=== PATIENT | female | born 1985 | race Caucasian/White ===

== ENCOUNTER 2023-12-31 14:22 | Outpatient (REF) | payer OTHER, SELFPAY ==
[2023-12-31 14:50] LABS: MANUAL DIFF FLAG NO
[2023-12-31 15:48] LABS: Basophils Absolute Auto 0.1 X10*3/uL (0.0-0.2); Eosinophils Absolute Auto 0.1 X10*3/uL (0.0-0.4); Hematocrit 41.8 % (37.0-47.0); Hemoglobin 14.7 g/dl (12.0-16.0); Imm Gran Abs Auto 0.03 X10*3/uL (0.00-0.03); Imm Gran Pct Auto 0.4 % (0.0-0.4); Lymphocytes Absolute Auto 1.5 X10*3/uL (1.2-4.9); Lymphocytes Percent Auto 21.8 % (20-40); Mean Corpuscular HGB Conc 35.2 g/dl (31.0-35.0); Mean Corpuscular Hemoglobin 32.6 pg (27.0-33.0); Mean Corpuscular Volume 92.7 fL (80.0-98.0); Mean Platelet Volume 12.1 fL (9.4-12.3); Monocytes Absolute Auto 0.6 X10*3/uL (0.1-1.2); Monocytes Percent Auto 8.1 % (2-11); Neutrophils Absolute Auto 4.7 x10*3/uL (2.0-8.3); Neutrophils Percent Auto 67.7 % (45-73); Platelet Count 235 X10*3/uL (160-400); Red Blood Count 4.51 X10*6/uL (4.20-5.50); Red Cell Distribution Width 12.4 % (11.0-16.0); White Blood Count 6.9 X10*3/uL (4.8-10.8)
[2023-12-31 16:17] LABS: Alanine Aminotransferase 47 U/L (0-31); Albumin Level 4.5 g/dL (3.5-5.0); Alkaline Phosphatase 46 U/L (39-117); Anion Gap 13 (12-20); Aspartate Amino Transferase 31 U/L (5-31); Bilirubin Total 0.8 mg/dL (0.0-1.0); Blood Urea Nitrogen 9 mg/dL (9-16); Calcium 10.1 mg/dL (8.4-10.2); Carbon Dioxide 23 mmol/L (22-29); Chloride 108 mmol/L (96-108); Estimated Glomerular Filt Rate > 60; Glucose Random 73 mg/dL (60-115); Potassium 3.9 mmol/L (3.3-5.1); Sodium 140 mmol/L (135-145); Total Protein 7.6 g/dL (6.5-8.0)
[2023-12-31 16:31] LABS: TSH reflex Free T4 2.68 uIU/mL (0.32-4.0)
== END 2023-12-31 14:23 | disposition home or self-care (01) ==
LOC: HO.LAB 14:22
PROVIDERS: PCP Nurse Practitioner Family; Visit Provider Nurse Practitioner Family
DX: R53.81 Other malaise (principal); R53.83 Other fatigue
CPT/HCPCS: 36415; 80053; 84443; 85025

== ENCOUNTER 2024-01-11 12:26 | Outpatient (REF) | payer OTHER, SELFPAY ==
--- NOTE | ~2024-01-11 | MM_ITS ---
EXAMINATION: MM SCREENING DIGITAL BREAST TOMOSYNTHESIS, BILATERAL CLINICAL INFORMATION: Screening. Asymptomatic. The patient is status post bilateral breast reduction approximately 8 years prior to this examination. COMPARISON: Mammography: This study is compared with the most recent previous mammogram from 2017. This was a prereduction mammogram. TECHNIQUE: Digital breast tomosynthesis is performed in both the craniocaudal and mediolateral oblique views along with computer-aided detection (CAD). Synthesized 2D images are generated from the tomosynthesis. FINDINGS: There are scattered areas of fibroglandular density (ACR BI-RADS breast composition Category b). There is a focal asymmetry in the upper-outer quadrant of the deep third of the right breast. This may be related to prior breast reduction however, this setting no interval mammograms since the breast reduction after November 2016, targeted diagnostic mammographic and targeted sonographic imaging of this finding is advised to ensure that it does not represent a clinically significant entity. In the left breast, there are no significant masses, abnormal calcifications, or other abnormalities. Postreduction changes are present in both breasts.. MM/MM tomosynthesis screening BI IMPRESSION: Bilateral post reduction changes. Focal asymmetry of the right breast warrants additional mammographic and targeted sonographic imaging. No mammographic signs of malignancy left breast. ASSESSMENT: BI-RADS BI-RADS 0 - Incomplete: Needs additional Imaging. RECOMMENDATION: 1. Additional views of the right breast. 2. Targeted ultrasound if warranted after review of the additional views. 3. Radiology department staff will contact the patient for additional imaging. Additional Imaging required This examination should not preclude the clinical evaluation of a suspicious palpable abnormality. This patient's information was entered into a reminder system with a target due date for their next mammogram. Electronically signed by: Inez Sadler MD 02/07/2024 03:32 PM EDT
== END 2024-01-11 12:27 | disposition home or self-care (01) ==
LOC: HO.MAMMO 12:26
PROVIDERS: PCP Nurse Practitioner Family; Visit Provider Nurse Practitioner Family
DX: Z12.31 Encounter for screening mammogram for malignant neoplasm of breast (principal)
CPT/HCPCS: 77063; 77067

== ENCOUNTER → 2024-01-11 12:45 | Outpatient (BNV) | payer OTHER, SELFPAY | PROVIDERS: PCP Nurse Practitioner Family; Visit Provider Radiology Diagnostic Radiology | DX: Z12.31 Encounter for screening mammogram for malignant neoplasm of breast (principal) | CPT/HCPCS: 77063; 77067 ==

== ENCOUNTER 2024-03-18 13:44 | Outpatient (REF) | payer OTHER, SELFPAY ==
--- NOTE | ~2024-03-18 | US_ITS ---
EXAMINATION: US DIAGNOSTIC ULTRASOUND BREAST, RIGHT CLINICAL INFORMATION: Evaluate focal asymmetry 11:00 axis posterior one third right breast seen on screening examination. In the interim between 01/11/2024, and 12/14/2016, patient has undergone breast reduction surgery. The architecture of the breasts has changed significantly. History of biopsied fibroadenoma 6:00 right breast, removed during surgery. COMPARISON: No prior ultrasound available. Mammography 01/11/2024 ([facility]) Mammography 12/14/2016, 11/30/2016 ([facility]). TECHNIQUE: Ultrasound of the breast is performed with real-time dao scale imaging and color Doppler. Attention was given to the 10:00 to the 2:00 axis to include the area of mammographic concern. FINDINGS: Within the liver o'clock axis right breast, 8 cm from the nipple, correlating with the mammographic focal asymmetry, is a mixed hypoechoic and hyperechoic slightly lobular mass measuring an estimated 4.0 x 1.9 x 3.7 cm. There is an adjacent small 7 mm cyst slightly laterally. This has an overall appearance highly suggestive of a region of fat necrosis/scarring from surgery, or possibly a superiorly displaced island of extremely dense breast tissue. Regardless, the presence of internal fat echogenicity as well as density seen on mammography confirms benign nature. No suspicious masses or abnormal shadowing identified. There is architectural distortion from prior breast reduction. US/US breast RT limited mamm only IMPRESSION: -No findings suspicious for malignancy right breast. -Probable region of scarring or fat necrosis in the 11:00 posterior right breast as described above. Presence of internal fat confirms benignity. No further follow-up required. Recommend the patient resume routine annual screening mammography. ASSESSMENT: BI-RADS 2: Benign RECOMMENDATION: Routine annual mammography screening. This patient's information was entered into a reminder system with a target due date for their next mammogram. Electronically signed by: Hemant Pantoja MD 03/18/2024 02:37 PM EDT
== END 2024-03-18 13:45 | disposition home or self-care (01) ==
LOC: HO.MAMMO 13:44
PROVIDERS: PCP Nurse Practitioner Family; Visit Provider Nurse Practitioner Family
DX: R92.8 Other abnormal and inconclusive findings on diagnostic imaging of breast (principal)
CPT/HCPCS: 76642

== ENCOUNTER → 2024-03-18 14:30 | Outpatient (BNV) | payer OTHER, SELFPAY | PROVIDERS: PCP Nurse Practitioner Family; Visit Provider Radiology Diagnostic Radiology | DX: N64.1 Fat necrosis of breast (principal); N63.11 Unspecified lump in the right breast, upper outer quadrant | CPT/HCPCS: 76642 ==

== ENCOUNTER 2024-03-28 16:06 | Outpatient (REF) | payer OTHER, SELFPAY ==
[2024-03-28 17:00] LABS: Alanine Aminotransferase 37 U/L (0-31); Albumin Level 4.3 g/dL (3.5-5.0); Alkaline Phosphatase 41 U/L (39-117); Aspartate Amino Transferase 28 U/L (5-31); Bilirubin Direct 0.1 mg/dL (0.0-0.5); Bilirubin Total 0.4 mg/dL (0.0-1.0); Total Protein 7.3 g/dL (6.5-8.0)
[2024-03-28 17:18] LABS: Thyroid Stimulating Hormone 3.28 uIU/mL (0.32-4.0)
== END 2024-03-28 16:07 | disposition home or self-care (01) ==
LOC: HO.LAB 16:06
PROVIDERS: PCP Nurse Practitioner Family; Visit Provider Nurse Practitioner Family
DX: R79.89 Other specified abnormal findings of blood chemistry (principal); E03.9 Hypothyroidism, unspecified
CPT/HCPCS: 36415; 80076; 84443

== ENCOUNTER 2024-10-14 08:22 | Outpatient (REF) | payer OTHER, SELFPAY ==
[2024-10-14 09:45] LABS: Alanine Aminotransferase 46 U/L (0-31); Anion Gap 12 (12-20); Aspartate Amino Transferase 40 U/L (5-31); Bilirubin Total 0.5 mg/dL (0.0-1.0); Blood Urea Nitrogen 10 mg/dL (9-16); Carbon Dioxide 23 mmol/L (22-29); Chloride 107 mmol/L (96-108); Estimated Glomerular Filt Rate > 60; Glucose Random 93 mg/dL (60-115); Potassium 3.9 mmol/L (3.3-5.1); Sodium 138 mmol/L (135-145); Total Protein 6.6 g/dL (6.5-8.0)
[2024-10-14 10:23] LABS: TSH reflex Free T4 4.63 uIU/mL (0.32-4.0)
[2024-10-14 12:54] LABS: Alkaline Phosphatase 42 U/L (39-117)
[2024-10-14 13:09] LABS: Free T4 (Free Thyroxine) 0.81 ng/dL (0.71-1.85)
== END 2024-10-14 08:23 | disposition home or self-care (01) ==
LOC: HO.LAB 08:22
PROVIDERS: PCP Nurse Practitioner Family; Visit Provider Nurse Practitioner Family
DX: Z00.00 Encounter for general adult medical examination without abnormal findings (principal); E03.9 Hypothyroidism, unspecified
CPT/HCPCS: 36415; 80053; 84439; 84443

== ENCOUNTER 2024-10-19 13:37 | Emergency (ER) | payer OTHER, SELFPAY ==
--- NOTE | 2024-10-19 13:42 | ED.GENADULT ---
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 States the tubing ripped during patient transport. Complains of nausea and slight lightheadedness but denies vomiting. Denies chest pain, shortness of breath, palpitations, dizziness. Did not flush eyes immediately after incident. MD complaint: fentanyl exposure Onset (ago): minute(s) Location: eyes Related Data Allergies Allergy/AdvReac Type Severity Reaction Status Date / Time opioids AdvReac Drowsy Uncoded 10/19/24 13:56 Review of Systems Review of Systems: As per HPI Yes all other systems are reviewed and are negative Constitutional: Constitutional: Reports as per HPI PMFSH Social History Social History Smoked in Last 30 Days: No Use of substances other than those prescribed or required for medical reasons: No Advance Directives: No Advance Directives Information Provided: Yes Do you have a plan to hurt others: No Plan Patient : No Physical Exam ED Vital Signs: Vital Signs - 24 hr 10/19/24 13:51 10/19/24 16:11 Temperature 97.9 F 96.9 F Pulse Rate 78 78 Respiratory Rate 18 20 Blood Pressure 140/84 H 152/98 H Pulse Oximetry 97 100 Oxygen Delivery Method Room Air Room Air BMI result Body Mass Index 35.0 Vital signs have been reviewed and appear to be correct. Blood pressure normal. Heart rate normal. Respiratory rate normal. Temperature normal. Oxygen saturation normal. Const General: cooperative, healthy appearing and no acute distress Orientation/consciousness: oriented to person, oriented to place, oriented to time and patient oriented x3 Limitations: no limitations HENMT Head: Yes normocephalic and Yes atraumatic Ears: external ears normal General nose exam: Normal external nose present Face and sinus: Yes face symmetric Mouth: oropharynx normal and moist mucous membranes Throat: Yes uvula midline Eyes General: appearance normal, both eyes and all related structures Visual Kothari: normal visual kothari by confrontation Eyelids: Yes eyelids normal Conjunctivae: conjunctivae normal Sclerae: sclerae normal Corneas: corneas normal Pupils: Equal, round and reactive pupils present (4mm bilat) EOM: EOMs intact bilaterally Direct Ophthalmoscopy: normal light reflex and no photophobia Neck Neck: Yes normal visual inspection and Yes supple Resp Effort & Inspection: normal respiratory effort and able to speak in complete sentences Auscultation: clear to auscultation bilaterally Cardio Rate: regular rate Rhythm: regular rhythm Heart sounds: S1 normal heart sound present and S2 normal heart sound present GI Palpation (GI): Soft to palpation and nontender Auscultation: normoactive bowel sounds General: Yes no CVA tenderness Back/Spine/Pelvis Back: no CVA tenderness Skin General skin exam: elasticity normal and turgor normal Neuro General: oriented to person, oriented to place, oriented to time, patient oriented x3, moves all extremities, no focal motor deficits and CN's II-XI intact bilaterally Cranial nerves: Yes Equal, round and reactive pupils present (4mm bilat) Cognition (Neuro): normal cognition Extrem General: Yes full ROM, Yes no pedal edema and Yes no calf tenderness Psych Mental Status: mental status grossly normal Affect: normal affect Thought process: Normal thought process present Medical Decision Making Medical Decision Making [facility] Narrative: 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 On exam patient is awake, A+Ox3, VS WNL, afebrile, normal neurological exam without focal deficits, physical exam findings as above. Given reported symptoms and physical exam findings, initial differential includes but is not limited to fentanyl exposure. Patient flushed eyes in the ED for 15 minutes. Observed for 2 hours without change in condition. Visual acuity WNL. Feel patient is stable for discharge home at this time. Return precautions discussed. Follow up with ophthalmology as needed. Patient verbalized understanding of and agreement with plan. Differential Diagnosis Differential Diagnoses: The differential diagnosis associated with the presentation includes as per mdm Admission/Observation Consideration of admission/observation: Escalation of care including admission/observation considered Patient would have been admitted to the hospital had their work up had any findings where hospital admission was appropriate and their clinical presentation warranted hospital admission. External Record Review External record reviewed: Inpatient record, Office record and Outpatient record Discharge Plan Discharge Clinical Impression: Chemical exposure of eye Patient Disposition: Home, Self-Care Additional Instructions: You were evaluated in the emergency department today after a fentanyl exposure to your eyes. Your eyes were flushed in the emergency department and you were observed for 2 hours without change in condition. You may experience minor irritation for the next few days. You can use [id number] lubricating eyedrops. Follow up with ophthalmology for any ongoing symptoms. Return to the ED with any new or concerning symptoms. Referrals: Jimbo Stout [Physician] - (Follow up as needed.) Print Language: Sami
[2024-10-19 13:51] VITALS: BP 140/84; PULSE 78; RESP 18; TEMP 36.6; O2SAT 97; BMI 35.0
[2024-10-19 16:11] VITALS: BP 152/98; PULSE 78; RESP 20; TEMP 36.1; O2SAT 100
[2024-10-19 17:01] VITALS: BP 152/98; PULSE 78; RESP 20; TEMP 36.1; O2SAT 100
== END 2024-10-19 17:02 | disposition home or self-care (01) ==
PROVIDERS: Emergency Provider Emergency Medicine; PCP Nurse Practitioner Family
DX: Z04.2 Encounter for examination and observation following work accident (principal); T40.411A Poisoning by fentanyl or fentanyl analogs, accidental (unintentional), initial encounter; R11.0 Nausea; R42 Dizziness and giddiness; Y92.230 Patient room in hospital as the place of occurrence of the external cause
CPT/HCPCS: 99283; 99284

== ENCOUNTER 2024-11-06 08:26 | Outpatient (AMB) | payer OTHER, SELFPAY ==
--- NOTE | 2024-11-06 08:28 | MHC.OFFVIS ---
Vital Signs 11/06/24 08:29 Height 5 ft 1 in Weight 189 lb 2.506 oz BMI 35.7 BP 104/84 Blood Pressure Location Rt brachial Position Sitting Pulse 80 Pulse Source Pulse Oximeter Pulse Oximetry (%) 98 Oxygen Delivery Method Room Air Intake Visit Reasons: Hypothyroidism Intake Note: New patient externally referred by PCP for Hypothyroidism. Rn Acute Care Required: No Accompanied by: Self / Same As Patient Allergies opioids Adverse Reaction (Uncoded 11/06/24 08:30) Drowsy Medication List - Last Reconciled 11/06/24 by Randall Patton MD bupropion HCl XL (Wellbutrin XL) 300 mg PO QAM escitalopram oxalate (Lexapro) 10 mg PO DAILY etonogestrel-ethinyl estradiol 0.12-0.015 mg/24 hr vag rings vaginal thyroid (pork) ([place] Thyroid) mg PO thyroid (pork) ([place] Thyroid) 90 mg PO DAILY zolpidem 10 mg PO BEDTIME PRN HPI Comments Details: The patient is a 39-year-old female presenting with a history of hypothyroidism for at least 20 years. Initially prescribed levothyroxine, the patient switched to desiccated thyroid extract with her PCP's direction, adjusting from 60 mg initially to the current 97.5 mg. Despite dosage changes, she continues to experience fatigue, heat intolerance, dry skin, and irregular menstruation, exacerbating concerns about her thyroid management. Her family history includes her mother's Graves' disease and therapeutic radioactive iodine administration, raising considerations about familial thyroid disease patterns. She highlights issues with her current medication regimen, particularly around accurate dosing and symptom management. Denies + fatigue, +weight gain, -cold intolerance, +dry skin, -hair loss, -constipation. There is no hx of hyperlipidemia . Denies obstructive sx of goiter . Denies consuming any kelp or seaweed. Denies taking amiodarone. Denies current or desiring to become in near future. Menses: Irregular menses Biotin: No Mother has hx of hyperthyroidism had AGARWAL Labs: [facility] Medical History (Updated 11/06/24 @ 08:30 by Randall Patton MD) Hypothyroidism Surgical History Hx of breast reduction, elective Family History Mother Heart attack High cholesterol Family history of thyroid problem History of hypertension Father High cholesterol History of hypertension Social History Alcohol intake: current Alcohol intake frequency: holidays/special occasions only Patient Tobacco Use Status: Former Tobacco user Physical Exam Vital Signs: BMI result Body Mass Index 35.7 HEENT reveals absence of lid lag , stare or proptosis or eyebrow loss. Thyroid gland measure gms . No nodules or tenderness palpated. There is no cervical adenopathy palpated. Lungs CTA. Heart S1, S2 Reg R/R -M/R/G. Abdominal exam benign. Skin exam reveals absence of dryness or thyroid dermopathy or vitiligo. Nail exam reveals absence of thyroid acropachy or oncholysis. Neurologic exam reveals 2+ reflexes . Muscle Strength is 5/5 proximally. There are no tremors in upper extremities. Assessment & Plan Assessment & Plan (1) Hypothyroidism: Code(s): E03.9 - Hypothyroidism, unspecified Category: Medical Plan: 1. Hypothyroidism The patient is to discontinue [place] Thyroid due to inadequate symptom control and elevated TSH levels. Unithroid 125 mcg, a consistent levothyroxine formulation, is initiated. Thyroid function tests (TSH) will be reassessed in six weeks to determine treatment efficacy, considering alternatives like Synthroid or Tirosint if needed. Thyroid peroxidase antibodies will be evaluated for potential autoimmune thyroiditis. I discussed with the patient her current challenges with managing hypothyroidism on [place] Thyroid. The risks of inconsistent T3 levels and dosage difficulties with [place] Thyroid were presented, as were the benefits of switching to a brand-centric levothyroxine like Unithroid. We agreed on a transition to Unithroid 125 mcg, aligning with managed care coverage. I provided information regarding monitoring her levels and outlined follow-up requirements, anticipating the possibility of switching to Synthroid Direct or Tirosint based on response. We reviewed lab follow-ups, including a thyroid antibody panel, with next-step adjustments contingent on therapeutic response. Consent for medication change was verbalized. - Stop taking [place] Thyroid. - Begin taking Unithroid 125 mcg daily as prescribed. - Return for lab tests in six weeks to monitor thyroid levels. - Follow-up in 2-3 months for evaluation of treatment effectiveness. - Notify if experiencing worsening symptoms or new health concerns. - Review insurance coverage and cost for Synthroid Direct and Tyrosint if Unithroid does not work. - Consult provided resources for information on thyroid health: Endocrine Society and [place] [employer]. Take 15 carb carbohydrate grams to treat a low sugar (3-4 glucose tablets, half a glass of juice or 15 carbohydrate grams of soft candy such as gummie snacks). Recheck your sugar in 15 minutes and re-treat again with 15 carbohydrate grams if low or still with symptoms. Do not drive a car or operate machinery if you do not know what your blood sugar is, if it is low or in excess of 300. The patient was counseled to achieve a target A1C of 7% (154 avg). Fasting blood sugars should be 90-130 in the morning and less than 180 two hours after meals. Reviewed the relationship between poor diabetic control and the development of complications. Check your feet daily looking for any signs of infection, drainage, redness, ulceration and seek medical attention if this occurs. Break in shoes gradually and do not wear open-toed shoes or walk stocking footed or barefooted. The patient had an opportunity to ask questions regarding treatment plan. The patient expressed understanding and agreement with the above treatment plan. Patient was informed and verbally consented to the use of an ambient scribe for clinic note documentation during this visit. Orders: Orders Free T4 (Free Thyroxine) 6 Weeks E03.9 - Hypothyroidism, unspecified Thyroid Stimulating Hormone 6 Weeks E03.9 - Hypothyroidism, unspecified Thyroid Peroxidase Antibodies 6 Weeks E03.9 - Hypothyroidism, unspecified Medications: New Unithroid (levothyroxine) 125 mcg PO DAILY 30 tabs 5RF NS Coding Level of Care Code New Pt Level 4 (49693) Diagnoses Hypothyroidism E03.9
[2024-11-06 08:29] VITALS: BP 104/84; PULSE 80; O2SAT 98; BMI 35.7
== END 2024-11-06 09:06 | disposition home or self-care (01) ==
PROVIDERS: PCP Nurse Practitioner Family; Visit Provider Internal Medicine Endocrinology, Diabetes & Metabolism
DX: E03.9 Hypothyroidism, unspecified (principal)
CPT/HCPCS: 99204

== ENCOUNTER 2024-12-19 09:00 | Outpatient (REF) | payer OTHER, SELFPAY ==
--- OUTSIDE RECORDS SUMMARY | 2024-12-19 09:04 | XMS_ITS | Encounter Summary ---
Author Organization [facility] Address [facility] [address] [place] [phone] Phone Care Team Providers Care Property Claims Manager Name Role Phone Rajni Macedo Fabienne RESIDENTIAL FEE APPRAISER Unavailable Vira Valenzuela DO Unavailable Aisha Martins CNM Unavailable Traci Yoder RESIDENTIAL FEE APPRAISER Unavailable Alli Lozano MD Unavailable Darlene Parks RESIDENTIAL FEE APPRAISER Unavailable Joselin Carrasquillo RESIDENTIAL FEE APPRAISER Unavailable Silvia Espinoza RESIDENTIAL FEE APPRAISER Unavailable [phone] Carlotta Prabhakar MD Unavailable [phone] Patrick Capps MD Unavailable Randall Foote MD Unavailable David Franco MD Unavailable Taylor Chahal MD Unavailable Megan Bhandari [facility] Primary Care Provider Encounter Details Date Type Department Care Team (Late st Contact Info) Description 02/18/2019 Procedure Pass OR Admitting Dept - Virtual Department [address] [place] [address] Social History Tobacco Use Types Packs/Day Years Used Date Smoking Tobacco: Never Smokeless Tobacco: Never Alcohol Use Standard Drinks/Week Comments Yes 0 (1 standard drink = 0.6 oz pur e alcohol) 1-2/week Comments No Sex and Gender Information Value Date Recorded Sex Assigned at Female 06/11/2017 9:35 AM EST Legal Sex Female 4:12 PM EST Gender Identity Female 06/11/2017 9:35 AM EST Sexual Orientation Straight 06/11/2017 9: 35 AM EST documented as of this encounter Plan of Treatment Not on file documented as of this encounter Visit Diagnoses Not on filedocumented in this encounter Additional Health Concerns Infection Onset Date Last Indicated Resolved Time CoV-Risk 05/11/2020 05/11/2020 05/11/2020 3:08 PM EST COVID-19 05/11/2020 05/11/2020 05/24/2020 2:07 PM EST CoV-Risk 07/14/2021 07/14/2021 07/24/2021 1:22 AM EST CoV-Exposed Comment:From [facility] 10/18/2021 10/18/2021 10/29/2021 1:25 A M EDT Assessment Noted Time PHQ-2 Depression Total Score: 6 05/21/20 18 2:56 PM EST documented as of this encounter Care Teams Property Claims Manager Relationship Specialty Start Date End Date Megan Bhandari FNP [address] [facility] [address] [place] [address] [email or web address] PCP - General Family Medicine 09/06/21 Rajni Macedo RESIDENTIAL FEE APPRAISER [address] [place] [address] Historical LMR Provider 03/24/17 2 Vira Valenzuela DO [address] [facility] [address] [place] [address] [email or web address] Historical LMR Provider 03/24/17 06/11/21 Aisha Martins CNM [address] [place] [id number] Historical LMR Provider 03/24/17 2 Traci Yoder NP [address] [place] [phone] Historical LMR Provider 03/24/17 2 Alli Lozano MD [address] [place] [phone] Historical LMR Provider 03/24/17 09/05/21 Darlene Parks NP [address] [place] [phone] Historical LMR Provider 03/24/17 2 Joselin Carrasquillo NP [address] [place] [phone] Historical LMR Provider 03/24/17 2 Silvia Espinoza NP [address] [place] [address] Historical LMR Provider 03/24/17 2 Carlotta Prabhakar MD [address] [place] [phone] Historical LMR Provider 03/24/17 2 Patrick Capps MD [address] [place] [phone] Historical LMR Provider 03/24/17 09/05/21 Randall Foote MD [address] [place] [phone] Historical LMR Provider 03/24/17 2 David Franco MD [address] [place], [place] [address] [place] [phone] [email or web address] Historical LMR Provider 03/24/17 09/05/21 Taylor Chahal MD [address] [place] [phone] [email or web address] Historical LMR Provider 03/24/17 09/05/21 documented as of this encounter Additional Source Comments The information contained in this document represents components of the legal health record. It is not the complete legal health record.[facility]
[2024-12-19 11:29] LABS: Free T4 (Free Thyroxine) 1.11 ng/dL (0.71-1.85); Thyroid Stimulating Hormone 1.17 uIU/mL (0.32-4.0)
== END 2024-12-19 09:01 | disposition home or self-care (01) ==
LOC: HO.LAB 09:00
PROVIDERS: PCP Nurse Practitioner Family; Visit Provider Internal Medicine Endocrinology, Diabetes & Metabolism
DX: E03.9 Hypothyroidism, unspecified (principal)
CPT/HCPCS: 36415; 84439; 84443; 86376

== ENCOUNTER 2025-01-19 06:24 | Emergency (ER) | payer OTHER, SELFPAY ==
[2025-01-19 06:26] VITALS: BP 149/76; PULSE 74; RESP 16; TEMP 36; O2SAT 97; BMI 35.3
--- NOTE | 2025-01-19 06:50 | ED.GENADULT ---
HPI - General Adult General Chief complaint: Wound/Laceration Stated complaint: Left wrist laceration Time Seen by Provider: 01/19/25 06:47 Source: patient Mode of arrival: ambulatory Limitations: no limitations History of Present Illness ED Provider: Dr. Friend [facility] narrative: This is a 39-year-old female presented hospital today after cutting her left wrist while washing dishes this morning. She is unsure of her tetanus shot status. No signs of compromise of range of motion of her fingers. Denies any blood thinners. She does have history of hypothyroidism. Related Data Home Medications ?Medication ?Instructions ?Recorded ?Confirmed bupropion HCl 300 mg 24 hr tablet, 300 mg PO QAM 11/06/24 extended release (Wellbutrin XL) escitalopram oxalate 10 mg tablet 10 mg PO DAILY 11/06/24 (Lexapro) etonogestrel 0.12 mg-ethinyl vag ring vaginal 11/06/24 estradiol 0.015 mg/24 hr vaginal ring zolpidem 10 mg tablet 10 mg PO BEDTIME PRN 11/06/24 Previous Rx's ?Medication ?Instructions ?Recorded Unithroid 125 mcg tablet 125 mcg PO DAILY #30 tabs 11/06/24 (levothyroxine) Allergies Allergy/AdvReac Type Severity Reaction Status Date / Time opioids AdvReac Drowsy Uncoded 01/19/25 06:28 Review of Systems Review of Systems: All systems are negative except as mentioned in HPI. [facility] Past Medical History [facility] Narrative: As mentioned in HPI Medical History (Updated 01/19/25 @ 07:46 by Ignacia Friend DO) Hypothyroidism Surgical History Hx of breast reduction, elective Family History Family History Mother Heart attack High cholesterol Family history of thyroid problem History of hypertension Father High cholesterol History of hypertension Social History Social History Alcohol intake: current Alcohol intake frequency: holidays/special occasions only Patient Tobacco Use Status: Former Tobacco user Advance Directives: No Advance Directives Information Provided: No Do you have a plan to hurt others: No Plan Physical Exam ED Exam Exam: General: Pleasant, no distress, interacting appropriately Head: Normacephalic, atraumatic Extremities: Small superficial 1 cm laceration over the left ulnar wrist., full range of motion of all 5 digits. Ulnar and radial pulse is intact. No obvious sign of foreign object Vital Signs: Vital Signs - 24 hr 01/19/25 06:26 Temperature 96.8 F Pulse Rate 74 Respiratory Rate 16 Blood Pressure 149/76 H Pulse Oximetry 97 Oxygen Delivery Method Room Air BMI result Body Mass Index 35.3 Procedures Procedure Narrative Procedure Narrative: Date: 01/19/25 Time: 744 Procedure Name: Laceration Repair Indication: Laceration Location: Left ulnar wrist Pre-Procedure Diagnosis: Laceration Post-Procedure Diagnosis: Repaired Laceration Informed consent was obtained before procedure started. Physician: Ignacia Friend There is a linear shaped laceration at left wrist. The wound was anesthetized with 2cc of 1% lidocaine. The wound was then irrigated with copious amount of normal saline. 2 stitches pf Nylon simple interrupted sutures were placed with good wound approximation. Wound was dressed. Patient tolerated the procedure well. Minimal blood loss. No complications. Medical Decision Making Medical Decision Making [facility] Narrative: This is a 39-year-old female presenting to ER for evaluation of wrist laceration over the left upper extremity. This laceration was repaired. I used 4-0 nylon sutures. Placed 2 stitches in toto simple interrupted. Wound approximated well. Tetanus shot will be updated. No signs of foreign object. I have low suspicion for any glass inpatient wound. Range of motion is intact. Low suspicion for tendon injury. No sign of vascular compromise. Patient will be discharged with instruction removed the stitches in 10-14 days. Patient will be discharged. Differential Diagnosis Tendon laceration, ulnar artery injury, glass in wound, laceration Discharge Plan Discharge Clinical Impression: Laceration Patient Disposition: Home, Self-Care Instructions: Laceration (ED) Additional Instructions: Remove in 10-14 days. Watch for signs of infection Prescriptions: No Action bupropion HCl [Wellbutrin XL] 300 mg tablet extended release 24 hr 300 mg PO QAM escitalopram oxalate [Lexapro] 10 mg tablet 10 mg PO DAILY zolpidem 10 mg tablet 10 mg PO BEDTIME PRN etonogestrel-ethinyl estradiol 0.12-0.015 mg/24 hr ring vaginal levothyroxine [Unithroid] 125 mcg tablet 125 mcg PO DAILY Qty: 30 5RF Print Language: Maldivian
[2025-01-19] MEDS: Diphth,Pertus(ACell),Tet Adult 0.5 ML SYRINGE IM (08:01)
[2025-01-19] MEDS: Lidocaine HCl 1 % 20 ML VIAL INFILTRATI (08:02)
[2025-01-19 08:05] VITALS: BP 136/89; PULSE 62; RESP 18; TEMP -17.7; TEMP 0; O2SAT 97
[2025-01-19 08:08] VITALS: BP 136/89; PULSE 62; RESP 18; TEMP -17.7; TEMP 0; O2SAT 97
== END 2025-01-19 08:08 | disposition home or self-care (01) ==
PROVIDERS: Emergency Provider Student in an Organized Health Care Education/Training Program; PCP Nurse Practitioner Family
DX: S61.512A Laceration without foreign body of left wrist, initial encounter (principal); W45.8XXA Other foreign body or object entering through skin, initial encounter; Y93.G1 Activity, food preparation and clean up; Y92.9 Unspecified place or not applicable; Y99.9 Unspecified external cause status
CPT/HCPCS: 12001; 90471; 90715; 99284; J2003

== ENCOUNTER 2025-02-09 07:51 | Outpatient (AMB) | payer OTHER, SELFPAY ==
[2025-02-09 07:53] VITALS: BP 128/80; PULSE 87; O2SAT 99; BMI 36.7
--- NOTE | 2025-02-09 07:53 | A.OFFVIS_ITS ---
Vital Signs 02/09/25 07:53 Height 5 ft 1 in Weight 194 lb 3.636 oz BMI 36.7 BP 128/80 Blood Pressure Location Lt brachial Position Sitting Pulse 87 Pulse Source Pulse Oximeter Pulse Oximetry (%) 99 Oxygen Delivery Method Room Air Intake Visit Reasons: f/u hypothyroidism Intake Note: Patient present today for Hypothyroidism follow up. Fund Controller Required: No Accompanied by: Self / Same As Patient Allergies opioids Adverse Reaction (Uncoded 02/09/25 07:57) Drowsy Medication List - Last Reconciled 02/09/25 by Randall Patton MD bupropion HCl XL (Wellbutrin XL) 300 mg PO QAM escitalopram oxalate (Lexapro) 10 mg PO DAILY etonogestrel-ethinyl estradiol 0.12-0.015 mg/24 hr vag rings vaginal Unithroid (levothyroxine) 125 mcg PO DAILY NS zolpidem 10 mg PO BEDTIME PRN HPI Comments Details: The patient is a 39-year-old female presenting with a history of hypothyroidism for at least 20 years. Initially prescribed levothyroxine, the patient switched to desiccated thyroid extract with her PCP's direction, adjusting from 60 mg initially to the current 97.5 mg. Despite dosage changes, she continues to experience fatigue, heat intolerance, dry skin, and irregular menstruation, exacerbating concerns about her thyroid management. Her family history includes her mother's Graves' disease and therapeutic radioactive iodine administration, raising considerations about familial thyroid disease patterns. She highlights issues with her current medication regimen, particularly around accurate dosing and symptom management. Denies + fatigue, +weight gain, -cold intolerance, +dry skin, -hair loss, - constipation. There is no hx of hyperlipidemia . Denies obstructive sx of goiter . Denies consuming any kelp or seaweed. Denies taking amiodarone. Denies current or desiring to become in near future. Menses: Irregular menses Biotin: No Mother has hx of hyperthyroidism had AGARWAL Labs: Currently on Unithroid 125 mcg The patient is a 39-year-old female presenting for management of hypothyroidism and Brina's thyroiditis. The patient has been taking levothyroxine 125 mcg for hypothyroidism, with recent lab results showing a TSH level of 1.1, which is within the normal range. Previously, her TSH level was 4.63, indicating suboptimal control, but it has since stabilized. The patient reports persistent fatigue despite normal thyroid function tests, suggesting possible contributions from other medications such as Wellbutrin. 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 - Labs: TSH level at 1.1, within normal range - Labs: Previous TSH level at 4.63, indicating suboptimal control - Labs: Positive antibodies for Brina's thyroiditis PFSH Medical History (Updated 01/20/25 @ 00:01 by Jose L Cruz) Hypothyroidism Surgical History Hx of breast reduction, elective Family History Mother Heart attack High cholesterol Family history of thyroid problem History of hypertension Father High cholesterol History of hypertension Social History Alcohol intake: current Alcohol intake frequency: does not drink Patient Tobacco Use Status: Former Tobacco user Physical Exam HEENT reveals absence of lid lag , stare or proptosis or eyebrow loss. Thyroid gland measure 15 gms . No nodules or tenderness palpated. There is no cervical adenopathy palpated. Lungs CTA. Heart S1, S2 Reg R/R -M/R/G. Abdominal exam benign. Skin exam reveals absence of dryness or thyroid dermopathy or vitiligo. Nail exam reveals absence of thyroid acropachy or oncholysis. Neurologic exam reveals 2+ reflexes . Muscle Strength is 5/5 proximally. There are no tremors in upper extremities. Assessment & Plan Assessment & Plan (1) Hypothyroidism: Code(s): E03.9 - Hypothyroidism, unspecified Category: Medical Plan: This is a 39-year-old white female with a history of Brina's thyroiditis and hypothyroidism being replaced on Unithroid 125 mcg. She appears to be clinically and biochemically euthyroide Plan is to continue the current therapy. At this point, patient returned to the care of her primary care provider returned back to endocrinology as needed 1. Hypothyroidism The patient's TSH level is currently well-controlled at 1.1 with levothyroxine 125 mcg. Despite this, she reports persistent fatigue, which may be influenced by other medications such as Wellbutrin. It is recommended to follow up with her primary care physician to evaluate other potential causes of fatigue and consider medication adjustments. The patient had an opportunity to ask questions regarding treatment plan. The patient expressed understanding and agreement with the above treatment plan. Patient was informed and verbally consented to the use of an ambient scribe for clinic note documentation during this visit. Coding Level of Care Code Est Pt Level 3 (79481) Diagnoses Hypothyroidism E03.9
--- OUTSIDE RECORDS SUMMARY | 2025-02-09 07:53 | XMS_ITS | Encounter Summary ---
Author Organization [facility] Address [address] [place] [address] Phone Care Team Providers Care Sourcing Consultant Name Role Phone Rajni Macedo Fabienne WOOD FUEL PELLETIZER Unavailable Vira Valenzuela DO Unavailable Aisha Martins CNM Unavailable Traci Yoder WOOD FUEL PELLETIZER Unavailable Alli Lozano MD Unavailable Darlene Parks WOOD FUEL PELLETIZER Unavailable Joselin Carrasquillo WOOD FUEL PELLETIZER Unavailable Silvia Espinoza WOOD FUEL PELLETIZER Unavailable [phone] Carlotta Prabhakar MD Unavailable [phone] Patrick Capps MD Unavailable Randall Foote MD Unavailable David Franco MD Unavailable Taylor Chahal MD Unavailable Megan Bhandari [facility] Primary Care Provider Encounter Details Date Type Department Care Team (Late st Contact Info) Description 02/18/2019 Procedure Pass OR Admitting Dept - Virtual Department [address] [place], [place] [id number] Social History Tobacco Use Types Packs/Day Years [...] documented as of this encounter Care Teams Sourcing Consultant Relationship Specialty Start Date End Date Megan Bhandari FNP [address] [facility] [address] [place] [address] [email or web address] PCP - General Family Medicine 09/06/21 Rajni Macedo [employer] PELLETI[employer]ER 1 [place] [address] Historical LMR Provider 03/24/17 2 Vira Valenzuela DO [address] [facility] [address] [place] [address] [email or web address] Historical LMR Provider 03/24/17 06/11/21 Aisha Martins CNM [address] [place] [id number] Historical LMR Provider 03/24/17 2 Traci Yoder NP [address] [place] [address] Historical LMR Provider 03/24/17 2 Alli Lozano MD [address] [place] [address] Historical LMR Provider 03/24/17 09/05/21 Darlene Parks NP [address] [place] [phone] Historical LMR Provider 03/24/17 2 Joselin Carrasquillo NP [address] [place] [address] Historical LMR Provider 03/24/17 2 Silvia Espinoza NP [address] [place] [address] Historical LMR Provider 03/24/17 2 Carlotta Prabhakar MD [address] [place] [address] Historical LMR Provider 03/24/17 2 Patrick Capps MD [address] [place] [address] Historical LMR Provider 03/24/17 09/05/21 Randall Foote MD [address] [place] [id number] Historical LMR Provider 03/24/1706/11/ 2 David Franco MD [address] [place], [place] [id number] [place] [phone] [email or web address] Historical LMR Provider 03/24/17 09/05/21 Taylor Chahal MD [address] [place] [address] [email or web address] Historical LMR Provider 03/24/17 09/05/21 documented as of this encounter Additional Source Comments The information contained in this document represents components of the legal health record. It is not the complete legal health record.[facility]
--- OUTSIDE RECORDS SUMMARY | 2025-02-09 07:53 | XMS_ITS | Encounter Summary ---
Author Organization [facility] Address [facility] [place] [address] [address] Phone Care Team Providers Care Analytics Senior Manager Name Role Phone Alli Lozano MD Unavailable Patrick Capps MD Unavailable [phone] David Franco MD Unavailable [phone] Taylor Chahal MD Unavailable [phone] Megan Bhandari [facility] Primary Care Provider Encounter Details Date Type Department Care Team (Late st Contact Info) Description 07/24/2021 Transcribe Orders [facility] Specimen Processing [address] [place] [address] Pcp, Not Required [address] [place] [address] Social History Tobacco Use Types Packs/Day Years [...] Onset Date Last Indicated Resolved Time CoV-Risk 07/14/2021 07/14/2021 07/24/2021 1:22 AM EST CoV-Exposed Comment:From [facility] 10/18/2021 10/18/2021 10/29/2021 1:25 A M EDT Assessment Noted Time PHQ-2 Depression Total Score: 6 05/21/20 18 2:56 PM EST documented as of this encounter Care Teams Analytics Senior Manager Relationship Specialty Start Date End Date Megan Bhandari [employer] [address] [place] [address] [address] [place] [address] PCP - General Family Medicine 09/06/21 Alli Lozano MD [address] [place] [address] Historical LMR Provider 03/24/17 09/05/21 Patrick Capps MD [address] [place] [address] Historical LMR Provider 03/24/17 09/05/21 David Franco MD [address] [place] [address] [address] [place] [address] [email or web address] Historical LMR Provider 03/24/17 09/05/21 Taylor Chahal MD [address] [place] [address] Historical LMR Provider 03/24/17 09/05/21 documented as of this encounter Additional Source Comments The information contained in this document represents components of the legal health record. It is not the complete legal health record.[facility]
--- OUTSIDE RECORDS SUMMARY | 2025-02-09 07:53 | XMS_ITS | Clinical Summary ---
Author Organization [facility] Address [facility] [employer] [address] [address] Phone Care Team Providers Care Set Up / Operator Name Role Phone Megan Bhandari EZE Primary Care Provider [phone] Allergies Active Allergy Reactions Criticality Noted Date Comments Opioids - Morphine Analogues Nausea and/or Vomiting 01/07/2019 Medications etonogestreL-et hinyl estradioL (NUVARING) 0.12-0.015 mg/24 hr vaginal ring INSERT 1 RING VAGINALLY DIRECTED. REMOVE AFTER 3 WEEKS & WAIT 7 DAYS BEFORE INSERTING A NEW RING 3 each 3 4 Active buPROPion (WELLBUTRIN XL) 300 MG ER 24 hr tablet Take 300 mg by mouth daily. 5 Active thyroid, pork, (ARMOUR THYROID) 90 mg TabIndications: Hypothyroid Take 1 tablet (90 mg total) by mouth every morning. 30 tablet 11 5 Active predniSONE (DELTASONE) 20 MG tabletIndicatio ns:Urticaria Take 2 tabs PO daily x 3 days, then 1.5 tabs daily x 3 days, 1 tab daily x 3 days, 0.5 tab daily x 3 days. 15 tablet 5 Active triamcinolone acetonide 0.5 % creamIndication s:Intrinsic eczema Apply topically 2 (two) times a day. For 5-10 days PRN for eczema flare on the neck or shins. 30 g 1 5 Active thyroid, pork, (ARMOUR THYROID) 15 mg TabIndications: Hypothyroidism Take 0.5 tablets (7.5 mg total) by mouth every morning. In addition to 90mg of [place] Thyroid daily 90 tablet 1 5 Active zolpidem (AMBIEN) 10 mg tabletIndicatio ns:Psychophysio logical insomnia TAKE 1 TABLET BY MOUTH NIGHTLY AT BEDTIME NEEDED 28 tablet 2 5 Active Active Problems Problem Noted Date Diagnosed Date Intrinsic eczema 08/16/2022 Assessment & Plan (08/16/2022 10:08 AM EDT): Use generous amount of bland emollient and continue the hydrocortisone PRN Rosacea 08/16/2022 Assessment & Plan (08/16/2022 10:08 AM EDT): Reports good effect from metrogel Premenstrual symptom 10/13/2020 Overview (10/13/2020): PMS Menorrhagia 10/13/2020 Overview (10/13/2020): First two days very heavy Restarting nuvaring Cervicalgia 05/21/2018 Chronic bilateral thoracic back pain 05/21/2018 Hypothyroidism 05/21/2017 Insomnia 05/21/2017 Assessment & Plan (08/16/2022 10:08 AM EDT): Discussed CBTi - Dr. Brain Garza in [place]; ; reduce alcohol and try to build back in regular exercise Assessment & Plan (02/23/2022 4:49 PM EDT): Stable, continue the PRN ambien. Follow up in 6 months. Assessment & Plan (04/14/2021 11:50 AM EST): Stable, continue the PRN ambien. Resolved Problems Problem Noted Date Diagnosed Date Resolved Date Vulvovaginitis due to yeast 03/05/2021 08/16/2022 Assessment & Plan (03/05/2021 11:57 AM EDT): S/SX most consistent with yeast vulvovaginitis. Symptoms primarily external at this time. Have suggested application of Clotrimazole or miconazole cream to external affected areas twice daily times up to 7 days. May apply small amount of hydrocortisone ointment to affected areas for itching. Fluconazole tablet by mouth x1. Follow-up as needed if no improvement in symptoms. Breast hypertrophy in female 09/09/2018 04/14/2021 Encounters Date Type Department Care Team Description 12/25/2024 Orders Only [facility] [address] [place] [address] ProviderSabrina MD 12/15/2024 Refill [facility] [address] [place] [address] Chloé Patel MD Medication Refill 11/11/2024 10:39 AM EDT - 11/11/2024 11:59 PM EDT Hospital Encounter [facility] [address] [place] [address] Keara Roldan DNP Discharge Disposition: Home or Self Care 11/11/2024 Transcribe Orders [facility] [address] [place] [address] Keara Roldan DNP Acquired hypothyroidism (Primary Dx); Urticaria, unspecified from Last 3 Months Immunizations Immunization Administration Dates Next Due COVID-19 (Pre-03/26) Pfizer Vaccine, mRNA, PF 05/25/2021,09/29/2020,09/08/2020 Hepatitis B, unspecified formulation 05/04/2017 INFLUENZA, SPLIT VIRUS, TRIVALENT PF 03/07/2024 INFLUENZA, SPLIT VIRUS, TRIV ALENT W/ PRESERVATIVE IM 04/13/2014 Influenza Quadrivalent Prese rvative Free IM 03/08/2023,03/30/2022,03/30/2022,2020,04/10/2019,03/20/2018,03/15/2016 Influenza, Unspecified Formulation 03/15/2020, MMR 05/04/2017 Tdap 07/22/2024,06/22/2014 Family History Medical History Relation Comments Alcohol use disorder Brother Hypertension Father Heart attack Mother Heart murmur Mother Hyperthyroidism Mother Stroke Paternal Uncle Substance use disorder Sister Relation Status Comments Brother Father Alive Mother Paternal Uncle Alive Sister Social History Tobacco Use Types Packs/Day Years Used Date Smoking Tobacco: Never Smokeless Tobacco: Never Alcohol Use Standard Drinks/Week Comments Yes 0 (1 standard drink = 0.6 oz pur e alcohol) once a week or less Child or Family Care Answer Date Record ed Do you have problems with on e of the following making it difficult for you to work, study, or receive health care? No 08/07/2024 Education Answer Date Recorded Are you interested in help w ith more adult education (for example, completing high school, GED, job training, learning the [place] language, technical skills, or developing parenting skills)? No 08/07/2024 Are you concerned about learning? Not on file 08/07/2024 No 08/07/2024 Yes 08/07/2024 Food Answer Date Recorded Within the past 6 months we worried whether our food would run out before we got money to buy more. Never True 08/07/2024 Within the past 6 months the food we bought just didn't last and we didn't have enough money to get more. Never True Residential Stability Answer Date Recor ded What is your housing situation today? I have marcelo sing 08/07/2024 How many times have you move d in the past 12 months? Zero (I did not move) 08/07/2024 Paying for Meds Answer Date Recorded Do you have trouble paying for medicines? No 08/07/2024 Paying Utility Bills Answer Date Record ed Do you have trouble paying your heating or elect ricity bill? No 08/07/2024 Transportation Answer Date Recorded Has the lack of transportati on kept you from medical appointments or from getting medications? No 08/07/2024 Unemployment Answer Date Recorded Are you currently unemployed or working on a part-time or temporary basis, and looking for work? No 08/07/2024 Digital Access Answer Date Recorded No 08/07/2024 Yes 08/07/2024 Do you have reliable internet access at home? Ye s 08/07/2024 Do you have a device (e.g., phone, tablet, computer) with a working camera? Yes 08/07/2024 Intimate Partner Violence Answer Date R ecorded Denied Basic Needs Not on file 08/07/2024 In the past 12 months have y ou been in a relationship with a person who hurts, threatens, or tries to control you? No 08/07/2024 Worried food would run out Not on file 08/07 In the past 12 months have y ou been in a relationship with a person who hurts, threatens, or tries to control you? No 08/07/2024 Comments No Sex and Gender Information Value Date Recorded Sex Assigned at Female 06/11/2017 9:35 AM EST Legal Sex Female 4:12 PM EST Gender Identity Female 06/11/2017 9:35 AM EST Sexual Orientation Straight 06/11/2017 9: 35 AM EST Last Filed Vital Signs Vital Sign Reading Time Taken Comments Blood Pressure 118/52 10/15/2024 8:53 AM EDT Pulse 80 10/15/2024 8:53 AM EDT Temperature 36.3 C (97.3 F) 10/15/2024 8:53 AM EDT Respiratory Rate 18 02/20/2024 9:15 AM EDT Oxygen Saturation 97% 10/15/2024 8:53 AM EDT Inhaled Oxygen Concentration - - Weight 84.5 kg (186 lb 3.2 oz) 10/15/2024 8:53 A M EDT Height 157.5 cm (5' 2 ) 08/16/2022 8:43 AM EDT Body Mass Index 34.06 08/16/2022 8:43 AM EDT Plan of Treatment Health Maintenance Due Date Last Done Comments MAMMOGRAM 2023 COVID-19 VACCINE ( season) 2024 05/25/2021, 09/29/2020, 09/08/2020 INFLUENZA VACCINE (#1) 2025 , 03/08/2023, 03/30/2022, Additional history exists PAP SMEAR 04/16/2025 04/16/2020, 04/04, 08/20/2014, Additional history exists DEPRESSION SCREENING 08/07/2025 08/07/2024, 08/17/19 23 SCREENING FOR DIABETES 11/12/2027 11/11/2024, 2022 Adult Td,Tdap Booster 07/22/2034 07/22/2024, 015 HIV ONE-TIME SCREENING (18-65 YEARS) Completed 11/18/2018 HEPATITIS C SCREENING Completed 08/18/2022 SMOKING STATUS SCREENING (Once After 26 Yrs) Completed 08/07/2024 HEPATITIS A VACCINES Aged Out No long er eligible based on patient's age to complete this topic HIB VACCINES Aged Out No longer eligi ble based on patient's age to complete this topic MENINGOCOCCAL VACCINES (ACWY) Aged Out No longer eligible based on patient's age to complete this topic MENINGOCOCCAL VACCINES (B) Aged Out N o longer eligible based on patient's age to complete this topic PNEUMOCOCCAL VACCINES (0-49 years) Aged Out No longer eligible based on patient's age to complete this topic Medical Devices Not on file Procedures Procedure Name Priority Date/Time Associated Diagnosis Comments FREE T4 Routine 12/25/2024 11:12 AM EDT BILIRUBIN, DIRECT Routine 11/11/2024 11: 13 AM EDT INDIRECT BILIRUBIN Routine 11/11/2024 11 :13 AM EDT AG RATIO Routine 11/11/2024 11:13 AM EDT TRYPTASE Routine 11/11/2024 11:13 AM EDT Acquired hypothyroidism Urticaria, unspecified MONOCLONAL PROTEIN STUDY, SERUM Routine 11/11/2024 11:13 AM EDT Acquired hypothyroidism Urticaria, unspecified IMMUNOGLOBULIN E, TOTAL Routine 11/11/2024 11:13 AM EDT Acquired hypothyroidism Urticaria, unspecified FREE T4 Routine 11/11/2024 11:13 AM EDT Acquired hypothyroidism SEDIMENTATION RATE (ESR) Routine 11/11/2024 11:13 AM EDT Acquired hypothyroidism Urticaria, unspecified C-REACTIVE PROTEIN Routine 11/11/2024 11 :13 AM EDT Acquired hypothyroidism Urticaria, unspecified COMPREHENSIVE METABOLIC PANEL Routine 11/11/2024 11:13 AM EDT Acquired hypothyroidism Urticaria, unspecified CHRONIC URTICARIA INDEX Routine 11/11/2024 11:13 AM EDT Acquired hypothyroidism Urticaria, unspecified CBC AND DIFFERENTIAL Routine 11/11/2024 11:13 AM EDT Acquired hypothyroidism Urticaria, unspecified TSH Routine 11/11/2024 11:13 AM EDT Acquired hypothyroidism HEPATITIS C ANTIBODY, QUALITATIVE Routine 08/18/2022 8:28 AM EDT Need for hepatitis C screening test PAP TEST Routine 04/16/2020 12:00 AM EST from Last 3 Months or Most Recently Relevant to Health Maintenance Results * Free T4 (12/25/2024 11:12 AM EDT) Only the most recent of2 resultswithin the time period is included. Historical Provider MD LAB BLOOD ORDERABLES Esperanza l Result * Ag Ratio (11/11/2024 11:13 AM EDT) A/G Ratio 1.48 1.00 - 4.80 RATIO [facility] 11/11/2024 11:1 3 AM EDT 11/11/2024 11:22 AM EDT Megan Bhandari [employer] LAB BLOOD ORDERABLES Final Re sult [address] [address] * (ABNORMAL) Monoclonal protein study, serum (11/11/2024 11:13 AM EDT) M-protein GK Test component not applicable or not reported. g/dL [facility]PATH [address] Phillipprotein GL Test component not applicable or not reported. g/dL [facility]PATH [address] Phillipprotein [place] Test component not applicable or not reported. g/dL [facility] LAB MED/PATH [address] M-protein AL Test component not applicable or not reported. g/dL [facility] M-protein MK Test component not applicable or not reported. g/dL [facility] M-protein ML Test component not applicable or not reported. g/dL [facility] Glycosylation Test component not applicable or not reported. [facility] Flag, M-protein Isotype Negative Negative [facility] QMPTS Interpretation No monoclonal protein detected. [facility] Comment: (NOTE) ADDITIONAL INFORMATION The submitted sample was assayed by five separate immunopurifications for IgG, IgA, IgM, kappa and lambda. The result reflects the findings of either no monoclonal protein detected or those monoclonal immunoglobulins that were detected. This test was developed and its performance characteristics determined by [facility] in a manner consistent with CLIA requirements. This test has not been cleared or approved by the U.S. Food and Drug Administration. IgA 220 61 - 356 mg/dL [facility] IgM 32(L) 37 - 286 mg/dL [facility] IgG 826 767 - 1,590 mg/dL [facility] Therapeutic Antibody Administered? unkn [facility] Blood 11/11/2024 11:1 3 AM EDT 11/11/2024 11:22 AM EDT Keara Roldan [facility] LAB BLOOD ORDERABLES Final Result [facility] [address] [place] [address] * Chronic Urticaria Index (11/11/2024 11:13 AM EDT) FC Epsilon RI (+RII) Ab 2.1 <10 [facility] Comment: (NOTE) The CU Index(R) test is the second generation Functional Anti-FceR test. Patients with a CU Index(R) greater than or equal to 10 have basophil reactive factors in their serum which supports an autoimmune basis for disease. *This test was developed and its performance characteristics determined by [employer]. It has not been cleared or approved by the U.S. Food and Drug Administration. FLAG Interpretation: A = Abnormal, H = High, L = Low Test Performed by: [employer] [id number] [place] [address] Blood 11/11/2024 11:1 3 AM EDT 11/11/2024 11:22 AM EDT Keara Roldan DNP LAB BLOOD ORDERABLES Final Result Performing Organization Address City/[facility]/ZIP Co de Phone Number [facility] * Indirect Bilirubin (11/11/2024 11:13 AM EDT) Bilirubin (Indirect) 0.3 0 - 1.5 mg/dL [facility] 11/11/2024 11:1 3 AM EDT 11/11/2024 11:22 AM EDT Megan Bhandari [employer]CH[employer] LAB BLOOD ORDERABLES Final Re sult Performing Organization Address [facility] Co de Phone Number [facility] [address] [place] [address] * Immunoglobulin E, total (11/11/2024 11:13 AM EDT) IGE 35.1 <=214 kU/L [facility]PATH [address] Blood 11/11/2024 11:1 3 AM EDT 11/11/2024 11:22 AM EDT Keara Roldan [facility] LAB BLOOD ORDERABLES Final Result Performing Organization Address [facility] Co de Phone Number [facility] LAB MED/PATH [address] [place] [address] * (ABNORMAL) Comprehensive metabolic panel (11/11/2024 11:13 AM EDT) SODIUM 135 133 - 146 mmol/L [facility] POTASSIUM 3.6 3.3 - 5.1 mmol/L [facility] CHLORIDE 102 96 - 108 mmol/L [facility] CO2 20(L) 21 - 35 mmol/L [facility] BUN 10 6 - 19 mg/dL [facility] CREATININE 0.70 0.5 - 1.5 mg/dL [facility] GLUCOSE 91 70 - 99 mg/dL [facility] ALBUMIN 4.0 3.9 - 4.8 g/dL [facility] TOTAL PROTEIN 6.7 6.5 - 8.0 g/dL [facility] CALCIUM 9.2 8.4 - 10.3 mg/dL [facility] ALKALINE PHOSPHATASE 43 39 - 117 U/L [facility] TOTAL BILIRUBIN 0.5 0.0 - 1.2 mg/dL [facility] AST 36 0 - 37 U/L [facility] ALT 36 0 - 40 U/L [facility] GLOBULIN 2.7 1 - 4.8 g/dL [facility] EGFR 111 >59 mL/min/1.7 3m2 [facility] Comment:Estimated glomerular filtration rate calculated using the CKD-EPI refit equation. ANION GAP 17 10 - 20 mmol/L [facility] Blood 11/11/2024 11:1 3 AM EDT 11/11/2024 11:22 AM EDT us Keara Roldan DNP LAB BLOOD ORDERABLES Final Result [address] [address] * Tryptase (11/11/2024 11:13 AM EDT) TRYPTASE 3.5 <11.5 ng/mL [facility] LAB MED/PATH [place] Blood 11/11/2024 11:1 3 AM EDT 11/11/2024 11:22 AM EDT us Keara Roldan DNP LAB BLOOD ORDERABLES Final Result [facility] LAB MED/PATH [address] [place] [address] * Sedimentation rate (ESR) (11/11/2024 11:13 AM EDT) ESR 4 0 - 20 mm/h [facility] Blood 11/11/2024 11:1 3 AM EDT 11/11/2024 11:22 AM EDT Keara Roldan DNP LAB BLOOD ORDERABLES Final Result [facility] [address] [place] [address] * (ABNORMAL) CBC and differential (11/11/2024 11:13 AM EDT) WBC 5.73 4.00 - 11.00 K/uL [facility] RBC 4.15 4.00 - 5.20 M/uL [facility] HGB 13.9 12.0 - 16.0 g/dL [facility] HCT 39.5 36.0 - 46.0 % [facility] PLT 254 150 - 450 K/uL [facility] MCV 95.2 80.0 - 100.0 fL [facility] MCH 33.5(H) 27.0 - 31.0 pg [facility] MCHC 35.2 32.0 - 36.0 g/dL [facility] RDW 11.9 11.5 - 14.5 % [facility] MPV 11.1 8.4 - 12.0 fL [facility] NRBC 0.00 0.00 /100 WBCs [facility] ABSOLUTE NRBC 0.00 0.00 K/uL [facility] DIFF METHOD Auto [facility] NEUTS 73.7 48.0 - 76.0 % [facility] LYMPHS 16.1(L) 18.0 - 41.0 % [facility] MONOS 7.3 4.0 - 11.0 % [facility] EOS 1.7 0.0 - 5.0 % [facility] BASOS 0.7 0.0 - 1.5 % [facility] Granulocytes, immature (%) 0.5 0.0 - 0.9 % [facility] ABSOLUTE NEUTS 4.22 1.92 - 7.60 K/uL [facility] ABSOLUTE LYMPHS 0.92 0.72 - 4.10 K/uL [facility] ABSOLUTE MONOS 0.42 0.16 - 1.10 K/uL [facility] ABSOLUTE EOS 0.10 0.00 - 0.50 K/uL [facility] ABSOLUTE BASOS 0.04 0.00 - 0.15 K/uL [facility] Granulocytes, immature 0.03 0.00 - 0.09 K/uL [facility] Blood 11/11/2024 11:1 3 AM EDT 11/11/2024 11:22 AM EDT Keara Roldan DNP LAB BLOOD ORDERABLES Final Result Performing Organization Address [facility] de Phone Number [address] [address] * (ABNORMAL) C-Reactive Protein (11/11/2024 11:13 AM EDT) C REACTIVE PROTEIN 12.5(H) 0.0 - 4.0 mg/L [facility] Blood 11/11/2024 11:1 3 AM EDT 11/11/2024 11:22 AM EDT Keara Roldan DNP LAB BLOOD ORDERABLES Final Result Performing Organization Address City/[facility] Co de Phone Number [address] [address] * TSH (11/11/2024 11:13 AM EDT) TSH 4.10 0.27 - 4.20 uIU/mL [facility] Blood 11/11/2024 11:1 3 AM EDT 11/11/2024 11:22 AM EDT Rima James PA-C LAB BLOOD ORDERABLE S Final Result Performing Organization Address City/State/[facility] Co de Phone Number [address] [address] * Bilirubin, direct (11/11/2024 11:13 AM EDT) DIRECT BILIRUBIN 0.2 0.0 - 0.2 mg/dL [facility] 11/11/2024 11:1 3 AM EDT 11/11/2024 11:[address] [facility] LAB BLOOD ORDERABLES Final Re sult Performing Organization Address [facility] Co de Phone Number [address] [address] * Hepatitis C antibody, qualitative (08/18/2022 8:28 AM EDT) HCV NON-REACTIV E NON-REACTI VE [facility] Blood 08/18/2022 8:28 AM EDT 08/18/2022 8:33 AM EDT us [facility] LAB BLOOD ORDERABLES Final Re sult Performing Organization Address [facility] Co de Phone Number [address] [address] * Pap Smear (04/16/2020 12:00 AM EST) 04/16/2020 04/19/2020 9:0 5 AM EST Narrative SEE NARRATIVE - 04/22/2020 3:37 PM EST [address] [address] Recreation Supervisor: Amara He MD EDITOR MANAGING NEWSPAPER Cytology Report FINAL DIAGNOSIS A. PAP SMEAR (SUREPATH) CE: SPECIMEN ADEQUACY: Satisfactory for evaluation; transformation zone present. INTERPRETATION: NEGATIVE FOR INTRAEPITHELIAL LESION OR MALIGNANCY. Electronically Signed Out By: CAITIE Tilley(ASCP) The Pap test is a screening test primarily for squamous cancers and precursors and has associated false-negative and false-positive results. New technologies such as liquid-based preparations may decrease but will not eliminate all false-negative results. Regular sampling and follow-up of unexplained clinical signs and symptoms are recommended to minimize false negative results. PROCEDURES/ADDENDA HPV Testing (Requested) Ordered Date: 04/19/2020 A. PAP SMEAR (SUREPATH) CE: Human Papilloma Virus Test Negative for high-risk human papillomavirus types 16, 18, 45 and the Other high risk probe set (Includes 31, 33, 35, 39, 51, 52, 56, 58, 59, 66, 68) by [employer] On[employer]arity HR-HPV analysis. Clinical correlation is advised. This HPV test was performed at [facility], [address] [place] [address]. This test has been FDA approved for [facility] cervical cytology specimens. The accuracy and precision of this test for all other specimen sources has been verified in the Cytopathology Laboratory of the [facility] and has not been cleared or approved by the U.S. Food and Drug Administration. Clinical correlation is advised. CLINICAL HISTORY Date of Last Menstrual Period: 04-15-2020 Other Clinical Conditions: Screening Pap SPECIMEN SOURCE A: PAP SMEAR (SUREPATH) CE Patient Name: MIHAELA SIMMSNA : 1985 (Age: 34) Sex: F Institution: [facility] Location: [facility] Date of Collection: 04/16/2020 Date of Reported: 04/20/2020 11:27 Results to: Patrick Capps MD, BS Patrick Capps MD CYTOLOGY ORDERABLES Edited Re sult - Final SEE NARRATIVE from Last 3 Months or Most Recently Relevant to Health Maintenance Insurance [employer] B[employer]EF[employer]MINISTRATORS [employer] Member Subscriber Plan / Payer (Ef fective 2022-Present) Name:Merrill Simms Relation to Subscriber:Self Name:Reed Merrill Payer ID:[id number] (NAIC) Type:PPO Address: [address] [employer] BENEFITS [employer]MINISTRATORS Member Subscriber Plan / Payer (Ef fective 2022-) Name:Merrill Simms Relation to Subscriber:Self Name:Merrill Simms Payer ID:[id number] (NAIC) Type:PPO Address: [address] [employer] BENEFITS ADMINISTRATORS [employer] ADMINISTRATORS [employer]MIN[employer] Advance Directives For more information, please contact: [phone] (9AM - 5PM [place], Sunday-Sunday) * Full Code (Presumed) (Latest Code Status on File) Date Activated Date Inactivated Comments 02/18/2019 7:12 AM 02/18/2019 5:05 PM Care Teams Set Up / Operator Relationship Specialty Start Date End Date Megan Bhandari FNP [address] [place] [address], [address] [place] [phone] [email or web address] PCP - General Family Medicine 09/06/21 Additional Source Comments The information contained in this document represents components of the legal health record. It is not the complete legal health record.[facility]
--- OUTSIDE RECORDS SUMMARY | 2025-02-09 07:53 | XMS_ITS | Encounter Summary ---
Author Organization Formerly [facility] Address [address] [place] [id number] Phone Care Team Providers Care Consulting It Architect Name Role Phone Laura Macedohleen Fabienne [employer] REPA[employer] Unavailable Vira Valenzuela DO Unavailable Aisha Martins CNM Unavailable Traci Yoder [employer] REPA[employer] Unavailable Alli Lozano MD Unavailable Darlene Parks [employer] BODY REPA[employer]ER [employer] Unavailable Joselin Carrasquillo [employer] BODY REPAIRER [employer] Unavailable Silvia Espinoza [employer] BODY REPAIRER [employer] Unavailable [phone] Carlotta Prabhakar MD Unavailable [phone] Patrick Capps MD Unavailable Randall Foote MD Unavailable David Franco MD Unavailable Taylor Chahal MD Unavailable Megan Bhandari [facility] Primary Care Provider Encounter Details Date Type Department Care Team (Late st Contact Info) Description 10/21/2017 Ancillary [facility] [address] [place] [id number] Alex Harris MD [address] [place] [address] [email or web address] Social History Tobacco Use Types Packs/Day Years Used Date Smoking Tobacco: Never Smokeless Tobacco: Never Alcohol Use Standard Drinks/Week Comments Yes 0 (1 standard drink = 0.6 oz pur e alcohol) weekly Comments No Sex and Gender Information Value Date Recorded Sex Assigned at Female 06/11/2017 9:35 AM EST Legal Sex Female 4:12 PM EST Gender Identity Female 06/11/2017 9:35 AM EST Sexual Orientation Straight 06/11/2017 9: 35 AM EST documented as of this encounter Plan of Treatment Not on file documented as of this encounter Results * XR WRIST 3 OR MORE VIEWS (RIGHT) (10/21/2017 5:22 PM EDT) Anatomical Region Laterality Modality Wrist Right Radiographic Elaina ging 10/21/2017 5:31 PM EDT Impressions 10/21/2017 5:33 PM EDT No findings to account for the patient's pain. POS - [id number] Narrative 10/21/2017 5:33 PM EDT HISTORY: As above. COMPARISON: None. RIGHT WRIST RADIOGRAPH FINDINGS: 5 views obtained including navicular views. There is no acute fracture or malalignment. Joint spaces are maintained. No destructive bone lesions. No acute soft tissue findings. Procedure Note Tank Marrero MD - 10/21/2017 HISTORY: As above. COMPARISON: None. RIGHT WRIST RADIOGRAPH FINDINGS: 5 views obtained including navicular views. There is no acute fracture ormalalignment. Joint spaces are maintained. No destructive bone lesions.No acute soft tissue findings. IMPRESSION: No findings to account for the patient's pain. POS - [id number] Alex Harris MD IMG XR UPPER EXTREMITY Fi nal Result documented in this encounter Visit Diagnoses Diagnosis Pain Generalized pain Pain Generalized pain documented in this encounter Additional Health Concerns Infection Onset Date Last Indicated Resolved Time CoV-Risk 05/11/2020 05/11/2020 05/11/2020 3:08 PM EST COVID-19 05/11/2020 05/11/2020 05/24/2020 2:07 PM EST CoV-Risk 07/14/2021 07/14/2021 07/24/2021 1:22 AM EST CoV-Exposed Comment:From [employer] 10/18/2021 10/18/2021 10/29/2021 1:25 A M EDT documented as of this encounter Care Teams Consulting It Architect Relationship Specialty Start Date End Date Megan Bhandari Brenda, [employer] [address] [place] [address] [address] [place] [address] [email or web address] PCP - General Family Medicine 09/06/21 Rajni Macedo, AUTO BODY REPAIRER [employer] [address] [place] [address] Historical LMR Provider 03/24/17 2 Vira Valenzuela DO [address] [place] [address] [address] [place] [address] [email or web address] Historical LMR Provider 03/24/17 06/11/21 Aisha Martins CNM [address] [place] [id number] Historical LMR Provider 03/24/17 2 Traci Yoder [employer] REPA[employer] [address] [place] [address] Historical LMR Provider 03/24/17 2 Alli Lozano MD [address] [place] [address] [email or web address] Historical LMR Provider 03/24/17 09/05/21 Darlene Parks NP [address] [place] [address] Historical LMR Provider 03/24/17 2 Joselin Carrasquillo NP [address] [place] [address] Historical LMR Provider 03/24/17 2 Silvia Espinoza NP [address] [place] [address] Historical LMR Provider 03/24/17 2 Carlotta Prabhakar MD [address] [place] [address] Historical LMR Provider 03/24/17 2 Patrick Capps MD [address] [place] [address] [email or web address] Historical LMR Provider 03/24/17 09/05/21 Randall Foote MD [address] [place] [address] Historical LMR Provider 03/24/17 2 David Franco MD [address] [place], [place] [address] [place] [id number] [email or web address] Historical LMR Provider 03/24/17 09/05/21 Taylor Chahal MD [address] [place] [address], [facility] [address] [place] [address] [email or web address] Historical LMR Provider 03/24/17 09/05/21 documented as of this encounter Additional Source Comments The information contained in this document represents components of the legal health record. It is not the complete legal health record.[facility]
== END 2025-02-09 08:12 | disposition home or self-care (01) ==
LOC: HO.ENCR 07:51
PROVIDERS: PCP Nurse Practitioner Family; Visit Provider Internal Medicine Endocrinology, Diabetes & Metabolism
DX: E03.9 Hypothyroidism, unspecified (principal)
CPT/HCPCS: 99213

== ENCOUNTER → 2025-02-09 07:51 | Outpatient (BNVA) | payer OTHER, SELFPAY | PROVIDERS: PCP Nurse Practitioner Family; Visit Provider Internal Medicine Endocrinology, Diabetes & Metabolism | DX: E03.9 Hypothyroidism, unspecified (principal); R53.83 Other fatigue; Z13.89 Encounter for screening for other disorder ==